=== PATIENT | male | born 1940 | race Caucasian/White ===

== ENCOUNTER 2016-12-27 14:49 | Observation (INO) ==
--- NOTE | 2016-12-27 14:56 | Emergency Department Note ---
Disposition Clinical Impression: Syncope Disposition: Admitted As Inpatient Condition: Critical General Adult HPI - General Chief complaint: ED Syncope Stated complaint: syncope Time Seen by Provider: 12/27/16 14:50 - Related Data Home Medications Medication Instructions Recorded Confirmed Allopurinol [Zyloprim 100 MG] 100 mg PO DAILY 12/27/16 12/27/16 Aspirin Enteric Coated [Aspirin EC] 81 mg PO DAILY 12/27/16 12/27/16 Cholecalciferol (Vitamin D3) 2,000 unit PO DAILY 12/27/16 12/27/16 [Vitamin D] Clopidogrel [Plavix] 75 mg PO DAILY 12/27/16 12/27/16 Levothyroxine [Synthroid] 25 mcg PO 0630 12/27/16 12/27/16 Losartan/Hydrochlorothiazide 1 tab PO DAILY 12/27/16 12/27/16 [Losartan-Hctz 100-25 mg Tab] Metoprolol [Lopressor] 25 mg PO BID 12/27/16 12/27/16 Multivitamin [One Daily Essential] 1 each PO DAILY 12/27/16 12/27/16 Simvastatin [Zocor] 20 mg PO HS 12/27/16 12/27/16 Zolpidem Tartrate [Zolpidem 2.5 - 5 mg PO HS PRN 12/27/16 12/27/16 Tartrate] Allergies Allergy/AdvReac Type Severity Reaction Status Date / Time propoxyphene [From Darvon] AdvReac Itching Verified 12/27/16 14:56 tramadol AdvReac Swelling Verified 12/27/16 14:56 of Lip/Tongue/Throat Past Medical History - Past Medical History Medical history: Reports: diabetes, hyperlipidemia, hypertension, thyroid disease, other Psychiatric history: Reports: no psych history - Social History Smoking Status: Never smoker Smokeless Tobacco Status: No Alcohol use: Reports: none Drug use: Reports: none Course Vital Signs Temperature 98 F 12/27/16 14:51 Pulse Rate 55 12/27/16 14:51 Respiratory Rate 16 12/27/16 14:51 Blood Pressure 122/75 12/27/16 14:51 O2 Sat by Pulse Oximetry 93 12/27/16 14:51 Temperature 97.9 F 12/27/16 19:42 Pulse Rate 54 12/27/16 19:42 Respiratory Rate 12 12/27/16 19:42 Blood Pressure 132/68 12/27/16 19:42 O2 Sat by Pulse Oximetry 95 12/27/16 19:42 Oxygen Delivery Oxygen Delivery Room Air Medical Decision Making - Lab Data Result diagrams: 12/27/16 15:16 12/27/16 15:16 Lab Results 12/27/16 12/27/16 12/27/16 Range/Units 15:16 15:16 15:16 WBC 7.1 (4.3-11.1) K/mcL RBC 4.92 (4.19-5.50) M/mcL Hgb 14.4 (12.9-16.9) g/dL Hct 43.2 (37.5-50.1) % MCV 87.8 (83.0-100.0) fL MCH 29.3 (28.0-33.3) pg MCHC 33.3 (31.6-35.5) g/dL RDW 13.1 (11.5-14.5) % Plt Count 189 (140-400) K/mcL MPV 10.3 (9.4-12.4) fL Immature Gran % 0.3 (0-4) % Seg Neutrophils % 78.8 % Lymphocytes % 14.0 % Monocytes % 5.8 % Eosinophils % 1.0 % Basophils % 0.1 % Neutrophils # 5.6 (1.6-8.9) K/mcL Lymphocytes # 1.0 (0.6-4.6) K/mcL Monocytes # 0.4 (0.0-1.3) K/mcL Eosinophils # 0.1 (0.0-0.6) K/mcL Basophils # 0.0 (0.0-0.2) K/mcL PT 11.9 (9.4-12.1) Seconds INR 1.1 APTT 27.9 (26.0-36.0) Seconds Sodium 138 (136-145) mEq/L Potassium 4.5 (3.5-4.5) mEq/L Chloride 101 (98-109) mEq/L Carbon Dioxide 27 (19-29) mEq/L BUN 33 H (8-26) mg/dL Creatinine 1.96 H (0.72-1.25) mg/dL Est GFR ( Amer) 41 L (> 60) Est GFR (Non-Af Amer) 34 L (> 60) BUN/Creatinine Ratio 17 (6-26) Glucose 226 H (70-99) mg/dL Calculated Osmolality 300 (280-300) Calcium 9.5 (8.6-10.8) mg/dL Troponin I (0-0.03) ng/mL 12/27/ Range/Units 15:16 WBC (4.3-11.1) K/mcL RBC (4.19-5.50) M/mcL Hgb (12.9-16.9) g/dL Hct (37.5-50.1) % MCV (83.0-100.0) fL MCH (28.0-33.3) pg MCHC (31.6-35.5) g/dL RDW (11.5-14.5) % Plt Count (140-400) K/mcL MPV (9.4-12.4) fL Immature Gran % (0-4) % Seg Neutrophils % % Lymphocytes % % Monocytes % % Eosinophils % % Basophils % % Neutrophils # (1.6-8.9) K/mcL Lymphocytes # (0.6-4.6) K/mcL Monocytes # (0.0-1.3) K/mcL Eosinophils # (0.0-0.6) K/mcL Basophils # (0.0-0.2) K/mcL PT (9.4-12.1) Seconds INR APTT (26.0-36.0) Seconds Sodium (136-145) mEq/L Potassium (3.5-4.5) mEq/L Chloride (98-109) mEq/L Carbon Dioxide (19-29) mEq/L BUN (8-26) mg/dL Creatinine (0.72-1.25) mg/dL Est GFR ( Amer) (> 60) Est GFR (Non-Af Amer) (> 60) BUN/Creatinine Ratio (6-26) Glucose (70-99) mg/dL Calculated Osmolality (280-300) Calcium (8.6-10.8) mg/dL Troponin I 0.04 H* (0-0.03) ng/mL Attestation Statement - Attestation Attestation: I examined this patient and my medical decision-making was reviewed with the Resident Physician. I agree with the documented findings, disposition and treatment plan as described except to the extent set forth below. [id number] time provided Patient arrives by EMS after a syncopal event. He appears in no acute distress at the time of exam. I evaluated this patient in conjunction with the resident physician Savage. EKG reviewed by me
--- NOTE | 2016-12-27 15:01 | Emergency Department Note ---
Disposition Clinical Impression: Syncope Disposition: Admitted As Inpatient Condition: Critical Time of Disposition: 18:00 Syncope HPI - General Chief Complaint: ED Syncope Stated Complaint: syncope Time Seen by Provider: 12/27/16 14:50 Source: patient, EMS Limitations: no limitations Nursing Notes Reviewed: Yes Vital Signs Reviewed: Yes - History of Present Illness HPI Narrative: Mr. Carpenter, a 76yo male, presents from scene via EMS for evaluation of syncope. Patient was seated and syncopized. He was caught by an [employer] member and lowered to the ground. He did not hit his head or neck. Patient had no prodromal symptoms. He does note that he has not felt well awakening this morning. He describes this as general fatigue with myalgia and a dry cough. No fevers, chills, nausea, vomiting, chest pains, palpitations, thoracic back pains, abdominal pains. 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 PMH: CAD status post ACS with double bypass in the late and triple bypass in early . Hypertension, hyperlipidemia, diabetes, hypothyroid. PSH: Open heart surgery twice, cholecystectomy Patient has not seen a checker stocker since 2010. - Related Data Home Medications Medication Instructions Recorded Confirmed Allopurinol [Zyloprim 100 MG] 100 mg PO DAILY 12/27/16 12/27/16 Aspirin Enteric Coated [Aspirin EC] 81 mg PO DAILY 12/27/16 12/27/16 Cholecalciferol (Vitamin D3) 2,000 unit PO DAILY 12/27/16 12/27/16 [Vitamin D] Clopidogrel [Plavix] 75 mg PO DAILY 12/27/16 12/27/16 Levothyroxine [Synthroid] 25 mcg PO 0630 12/27/16 12/27/16 Losartan/Hydrochlorothiazide 1 tab PO DAILY 12/27/16 12/27/16 [Losartan-Hctz 100-25 mg Tab] Metoprolol [Lopressor] 25 mg PO BID 12/27/16 12/27/16 Multivitamin [One Daily Essential] 1 each PO DAILY 12/27/16 12/27/16 Simvastatin [Zocor] 20 mg PO HS 12/27/16 12/27/16 Zolpidem Tartrate [Zolpidem 2.5 - 5 mg PO HS PRN 12/27/16 12/27/16 Tartrate] Allergies Allergy/AdvReac Type Severity Reaction Status Date / Time propoxyphene [From Darvon] AdvReac Itching Verified 12/27/16 14:56 tramadol AdvReac Swelling Verified 12/27/16 14:56 of Lip/Tongue/Throat All systems ED: reviewed and negative except as stated. Review of Systems: As Per HPI Past Medical History - Past Medical History Medical history: Reports: diabetes, hyperlipidemia, hypertension, thyroid disease, other Psychiatric history: Reports: no psych history - Social History Smoking Status: Never smoker Smokeless Tobacco Status: No Alcohol use: Reports: none Drug use: Reports: none Physical Exam Vital Signs Reviewed General: Patient is alert, oriented, and in no acute distress. HEENT: No facial asymmetry. Head is normocephalic and atraumatic. PERRLA, EOMI. oral mucosa moist. Trachea midline. Cardiovascular: Heart regular rate and rhythm without clicks, rubs, gallops, or murmurs. No JVD. PMI nondisplaced. Respiratory: Symmetric chest rise with good respiratory effort. Bilateral breath sounds are clear without wheezing, crackles, or rhonchi. Vertical midline sternal remote operative incision. Abdomen: Bowel sounds present normoactive x-4 quadrants. Abdomen is soft, nondistended, and nontender. No rebound or guarding. Left upper quadrant diagonal incision, remote, well-healed. Musculoskeletal: Spontaneously moving all extremities. Neuro: GCS 15. Skin: Warm, dry, intact. Psych: Patient's affect is appropriate for situation. - General Limitations: no limitations General appearance: alert, in no apparent distress Course Course Narrative: Patient presents with concerning story for syncope while at sitting. He denies any prodromal symptoms. He is in sinus bradycardia on EKG as well as on the monitor. He has no chest pains or palpitations. Clinical concern for cardiogenic syncope. Patient is agreeable to admission. We will also workup accordingly. Troponin is 0.0. Lab work is unremarkable. Patient's daughter is not bedside. I discussed with her and patient his EKG, the meaning of an EKG, his troponin being slightly elevated, the meaning of the troponin, and the need for continued evaluation. They are both in agreement for his admission to have no additional questions or concerns this time. Denies need for analgesia and is in no pain at this time. Vital Signs Temperature 98 F 12/27/16 14:51 Pulse Rate 55 12/27/16 14:51 Respiratory Rate 16 12/27/16 14:51 Blood Pressure 122/75 12/27/16 14:51 O2 Sat by Pulse Oximetry 93 12/27/16 14:51 Temperature 98 F 12/27/16 14:51 Pulse Rate 53 12/27/16 16:29 Respiratory Rate 16 12/27/16 17:32 Blood Pressure 132/65 12/27/16 17:32 O2 Sat by Pulse Oximetry 97 12/27/16 16:29 Oxygen Delivery Oxygen Delivery Room Air Syncope - Lab Data Result diagrams: 12/27/16 15:16 12/27/16 15:16 Lab Results 12/27/16 12/27/16 12/27/16 Range/Units 15:16 15:16 15:16 WBC 7.1 (4.3-11.1) K/mcL RBC 4.92 (4.19-5.50) M/mcL Hgb 14.4 (12.9-16.9) g/dL Hct 43.2 (37.5-50.1) % MCV 87.8 (83.0-100.0) fL MCH 29.3 (28.0-33.3) pg MCHC 33.3 (31.6-35.5) g/dL RDW 13.1 (11.5-14.5) % Plt Count 189 (140-400) K/mcL MPV 10.3 (9.4-12.4) fL Immature Gran % 0.3 (0-4) % Seg Neutrophils % 78.8 % Lymphocytes % 14.0 % Monocytes % 5.8 % Eosinophils % 1.0 % Basophils % 0.1 % Neutrophils # 5.6 (1.6-8.9) K/mcL Lymphocytes # 1.0 (0.6-4.6) K/mcL Monocytes # 0.4 (0.0-1.3) K/mcL Eosinophils # 0.1 (0.0-0.6) K/mcL Basophils # 0.0 (0.0-0.2) K/mcL PT 11.9 (9.4-12.1) Seconds INR 1.1 APTT 27.9 (26.0-36.0) Seconds Sodium 138 (136-145) mEq/L Potassium 4.5 (3.5-4.5) mEq/L Chloride 101 (98-109) mEq/L Carbon Dioxide 27 (19-29) mEq/L BUN 33 H (8-26) mg/dL Creatinine 1.96 H (0.72-1.25) mg/dL Est GFR ( Amer) 41 L (> 60) Est GFR (Non-Af Amer) 34 L (> 60) BUN/Creatinine Ratio 17 (6-26) Glucose 226 H (70-99) mg/dL Calculated Osmolality 300 (280-300) Calcium 9.5 (8.6-10.8) mg/dL Troponin I (0-0.03) ng/mL 12/27/16 Range/Units 15:16 WBC (4.3-11.1) K/mcL RBC (4.19-5.50) M/mcL Hgb (12.9-16.9) g/dL Hct (37.5-50.1) % MCV (83.0-100.0) fL MCH (28.0-33.3) pg MCHC (31.6-35.5) g/dL RDW (11.5-14.5) % Plt Count (140-400) K/mcL MPV (9.4-12.4) fL Immature Gran % (0-4) % Seg Neutrophils % % Lymphocytes % % Monocytes % % Eosinophils % % Basophils % % Neutrophils # (1.6-8.9) K/mcL Lymphocytes # (0.6-4.6) K/mcL Monocytes # (0.0-1.3) K/mcL Eosinophils # (0.0-0.6) K/mcL Basophils # (0.0-0.2) K/mcL PT (9.4-12.1) Seconds INR APTT (26.0-36.0) Seconds Sodium (136-145) mEq/L Potassium (3.5-4.5) mEq/L Chloride (98-109) mEq/L Carbon Dioxide (19-29) mEq/L BUN (8-26) mg/dL Creatinine (0.72-1.25) mg/dL Est GFR ( Amer) (> 60) Est GFR (Non-Af Amer) (> 60) BUN/Creatinine Ratio (6-26) Glucose (70-99) mg/dL Calculated Osmolality (280-300) Calcium (8.6-10.8) mg/dL Troponin I 0.04 H* (0-0.03) ng/mL - EKG Data EKG attestation: Yes I reviewed and interpreted this EKG. EKG results narrative: EKG dated 12/27/16 at 14:53 and interpreted as sinus bradycardia with a rate of 59. Normal intervals. 169, QRS 85, QT/QTc 444/444. Normal axis. An isolated T-wave inversion in V1 present on comparative EKG otherwise nonspecific ST-T changes.. Compared to previous EKG dated 12/09/2014 showed no acute ischemic changes.
[2016-12-27 15:25] LABS: Basophils % 0.1 %; Eosinophils # 0.1 K/mcL (0.0-0.6); Hematocrit 43.2 % (37.5-50.1); Hemoglobin 14.4 g/dL (12.9-16.9); Immature Granulocytes % 0.3 % (0-4); Mean Corpuscular HGB Conc 33.3 g/dL (31.6-35.5); Mean Corpuscular Hemoglobin 29.3 pg (28.0-33.3); Mean Corpuscular Volume 87.8 fL (83.0-100.0); Mean Platelet Volume 10.3 fL (9.4-12.4); Monocytes # 0.4 K/mcL (0.0-1.3); Monocytes % 5.8 %; Neutrophils # 5.6 K/mcL (1.6-8.9); Platelet Count 189 K/mcL (140-400); Red Blood Count 4.92 M/mcL (4.19-5.50); Red Cell Distribution Width 13.1 % (11.5-14.5); Segmented Neutrophils % 78.8 %
[2016-12-27 15:31] LABS: INR 1.1; Prothrombin Time 11.9 Seconds (9.4-12.1)
[2016-12-27 15:33] LABS: Activated Partial Thrombo Time 27.9 Seconds (26.0-36.0)
[2016-12-27 15:36] LABS: Calcium 9.5 mg/dL (8.6-10.8); Potassium 4.5 mEq/L (3.5-4.5)
[2016-12-27] MEDS ORDERED: Aspirin 81 MG TAB.CHEW PO ONE (15:45)
[2016-12-27] MEDS ORDERED: Naloxone 0.4 MG/ML INJ IVP PRN (18:27)
--- NOTE | 2016-12-27 18:35 | Internal Med History&Physical ---
<Leon Warren - Last Filed: 12/27/16 20:53> Date of Encounter: 12/27/16 Time of Encounter: 18:33 Assessment and Plan (1) Syncope Current visit: Yes Status: Acute Syncopal event this afternoon. Was found to be bradycardic in ED, remains bradycardic, no SOB, no CP. BP is stable. No prior h/o syncope, does not regularly follow with rn delivery. Taking BB, reports HR 60 this morning; took BB anyway Hold BB echocardiogram BL carotid doppler US continuous tele, Qualifiers: Syncope type: unspecified Qualified Code(s): R55 - Syncope and collapse (2) Bradycardia Current visit: Yes Status: Acute He reports that he is frequently bradycardic. He is on a beta veronica at home, heart rate is morning 60 prior to taking metoprolol. Heart rate in the 40s upon arrival to the emergency department this afternoon. See plan above hold BB for now (3) Hypothyroid Current visit: Yes Status: Acute History of hypothyroidism. Reports he has not had thyroid checked in quite some time. We will check TSH and free T4 in the morning. Consider adjusting medications based on results Qualifiers: Hypothyroidism type: unspecified Qualified Code(s): E03.9 - Hypothyroidism , unspecified (4) CKD (chronic kidney disease) Current visit: Yes Status: Acute follow with Dr. Friedman, CR is 1.96 today, prior CR is 1.71. Check chemistry in the morning Qualifiers: Chronic kidney disease stage: unspecified stage Qualified Code(s): N18.9 - Chronic kidney disease, unspecified (5) HLD (hyperlipidemia) Current visit: Yes Status: Acute Qualifiers: Qualified Code(s): E78.5 - Hyperlipidemia, unspecified (6) HTN (hypertension) Current visit: Yes Status: Acute H/O HTN, BP currently stable. Continue hyzaar, hold BB for now as the patient had a syncopal event today Qualifiers: Hypertension type: essential hypertension Qualified Code(s): I10 - Essential (primary) hypertension Internal Medicine - H&P: HPI Chief complaint: syncope Admitted From: Home Plans for Post Hospital Care: Home History of present illness: Mr. Carpenter is a 76 year old male with a PMH of CAD, HTN, HLD,, DM, hypothyroidism, and 3 vessel CABG. He presents today for a syncopal event. 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 He was seated and suddenly became syncopal. He reports that he did not hit his head or suffer neck trauma as he was caught by a bystander. He reports that he has not felt well for the last 3 days, reporting generalized fatigue. He denies any fevers, chills, n/v, CP palpitations, vision changes, or SOB. He does have some concerns for a dull frontal h/a over the last three days. No additional complaints. Troponin is slightly elevated at 0.04. Past Med Surg Social Fam HX - Past Medical History Medical history: diabetes, hyperlipidemia, hypertension, thyroid disease, other Psychiatric history: no psych history - Social History Smoking Status: Never smoker Smokeless Tobacco Status: No Alcohol use: none Drug use: none Internal Medicine - H&P: Meds Allopurinol [Zyloprim 100 MG] 100 mg PO DAILY 12/27/16 [History] Aspirin Enteric Coated [Aspirin EC] 81 mg PO DAILY 12/27/16 [History] Cholecalciferol (Vitamin D3) [Vitamin D] 2,000 unit PO DAILY 12/27/16 [History] Clopidogrel [Plavix] 75 mg PO DAILY 12/27/16 [History] Levothyroxine [Synthroid] 25 mcg PO 0630 12/27/16 [History] Losartan/Hydrochlorothiazide [Losartan-Hctz 100-25 mg Tab] 1 tab PO DAILY [History] Metoprolol [Lopressor] 25 mg PO BID 12/27/16 [History] Multivitamin [One Daily Essential] 1 each PO DAILY 12/27/16 [History] Simvastatin [Zocor] 20 mg PO HS 12/27/16 [History] Zolpidem Tartrate [Zolpidem Tartrate] 2.5 - 5 mg PO HS PRN 12/27/16 [History] 3 Allergy/AdvReac Type Severity Reaction Status Date / Time propoxyphene [From Darvon] AdvReac Itching Verified 12/27/16 14:56 tramadol AdvReac Swelling Verified 12/27/16 14:56 of Lip/Tongue/Throat All Systems PM: A 10-system review of systems was performed and is negative for pertinent findings except as documented above in the HPI. - Constitutional Constitutional: no chills, no fever(s), no night sweats - EENT Eyes: no change in vision, no discharge, no pain, no photophobia Ears: no ear discharge, no ear pain, no tinnitus Nose, mouth and throat: no dysphagia, no nasal discharge, no neck pain, no sore throat - Cardiovascular Cardiovascular ROS IM: lightheadedness, syncope, no chest pain, no diaphoresis, no dyspnea, no edema, no irregular heart rhythm, no palpitations - Respiratory Respiratory: no cough, no dyspnea, no wheezing, no excessive phlegm production - Gastrointestinal Gastrointestinal: no abdominal pain, no diarrhea, no hematemesis, no hematochezia, no melena, no nausea, no vomiting - Musculoskeletal Musculoskeletal ROS IM: no numbness, no tingling - Integumentary Integumentary IM: no rash, no unusual bruising - Neurological Neurological ROS: as per HPI, dizziness, headache(s), weakness, no abnormal gait , no abnormal hearing, no abnormal movements, no abnormal speech, no behavioral changes, no confusion, no convulsions, no disequilibrium, no focal weakness, no frequent falls, no lack of coordination, no loss of vision, no memory loss, no numbness, no tingling, no tremor(s) - Hematologic/Lymphatic Hematologic/Lymphatic: no easy bruising - Constitutional Vitals: Temp Pulse Resp BP Pulse Ox 98 F 53 16 132/65 97 12/27/16 14:51 12/27/16 16:29 12/27/16 17:32 12/27/16 17:32 12/27/16 16:29 General appearance: Present: cooperative, A&O X 3, no acute distress, answers questions appropriately - Head Head exam: Present: atraumatic, normocephalic - Eye Eye exam: Present: EOMI, PERRL, conjuntiva pink, sclera anicteric Pupils: Present: PERRL - Neck Neck exam general surgery: Present: supple, trachea midline. Absent: lymphadenopathy - Respiratory Respiratory exam: Present: CTAB. Absent: accessory muscle use, rales, rhonchi, wheezes - Cardiovascular Cardiovascular exam: Present: bradycardia, RRR, +S1, +S2. Absent: diastolic murmur, distant heart sounds, gallop, irregular rhythm, JVD, rubs, systolic murmur - GI/Abdominal GI/Abdominal exam: Present: normal bowel sounds, soft, no peritoneal signs. Absent: distended, tenderness - Extremities Exam Extremities exam: Present: warm, radial pulses palpable and symmetrical. Absent : calf tenderness, cyanotic, pedal edema - Neurological Exam Neurological exam: Present: alert, CN II-XII intact, oriented X3, no focal deficits, strengths equal and symetr throughout. Absent: pronater drift, facial droop, speech deficit - Expanded Neurological Exam Patient oriented to: Present: person, place, time Coma Scale Eye Opening: Spontaneous Coma Scale Motor Response: Obeys Commands Coma Scale Verbal Response: Oriented Coma Scale Total: 15 - Skin Skin exam: Present: dry, intact Internal Med - H&P Results - Labs CBC & Chem 7: 12/27/16 15:16 12/27/16 15:16 - EKG Data -: EKG Interpreted by Myself EKG shows normal: sinus rhythm Rate: bradycardia - EKG Data Prior EKG available for review: no - Diagnostic Studies Chest x-ray Status: image reviewed by me Additional comments: no acute pulmonary process <Tyrell Cheng - Last Filed: 12/27/16 22:27> Date of Encounter: 12/27/16 Internal Medicine - H&P: HPI History of present illness: Mr. Carpenter is a 76 year old male All Systems PM: A 10-system review of systems was performed and is negative for pertinent findings except as documented above in the HPI. - Constitutional Vitals: Temp Pulse Resp BP Pulse Ox 97.9 F 54 12 132/68 95 12/27/16 19:42 12/27/16 19:42 12/27/16 19:42 12/27/16 19:42 12/27/16 19:42 Internal Med - H&P Results - Labs CBC & Chem 7: 12/27/16 15:16 12/27/16 15:16 Labs: Cardiac Enzymes 12/27/16 Range/Units 21:06 Troponin I 0.03 (0-0.03) ng/mL - Attending Attestation I have personally performed a face to face evaluation on this patient. I have reviewed and agree with the care plan. History and Exam by me shows: 76 y/o male with syncopal episode today. No prodrome. No injury. Feels at baseline at this time. Exam Alert. Comfortable Heart reg Lungs clear Agree with assessment and plan as above.
[2016-12-27] MEDS: 0.9 % Sodium Chloride 1,000 ML IVC SCH (21:40)
[2016-12-28 04:04] LABS: Albumin 3.3 g/dL (3.5-5.0); Albumin/Globulin Ratio 0.9 (1.1-2.2); Bilirubin,Total 0.3 mg/dL (0.2-1.2); Calcium 8.7 mg/dL (8.6-10.8); Globulin 3.7 g/dL (2.4-3.5); Potassium 3.8 mEq/L (3.5-4.5)
[2016-12-28 04:05] LABS: Basophils % 0.3 %; Eosinophils # 0.2 K/mcL (0.0-0.6); Eosinophils % 2.2 %; Hematocrit 39.6 % (37.5-50.1); Hemoglobin 13.4 g/dL (12.9-16.9); Immature Granulocytes % 0.3 % (0-4); Lymphocytes % 27.8 %; Mean Corpuscular HGB Conc 33.8 g/dL (31.6-35.5); Mean Corpuscular Hemoglobin 29.2 pg (28.0-33.3); Mean Corpuscular Volume 86.3 fL (83.0-100.0); Mean Platelet Volume 10.4 fL (9.4-12.4); Monocytes # 0.7 K/mcL (0.0-1.3); Monocytes % 10.1 %; Neutrophils # 4.3 K/mcL (1.6-8.9); Platelet Count 165 K/mcL (140-400); Red Blood Count 4.59 M/mcL (4.19-5.50); Red Cell Distribution Width 13.2 % (11.5-14.5); Segmented Neutrophils % 59.3 %
[2016-12-28 04:25] LABS: Thyroid Stimulating Hormone 3.534 mcIU/mL (0.350-4.840)
--- NOTE | 2016-12-28 07:58 | Discharge Summary ---
Date of Encounter: 12/28/16 Time of Encounter: 07:55 - Discharge Diagnosis (1) Syncope Priority: Primary Status: Acute Comments: Secondary to symptomatic bradycardia due to beta blockers/metoprolol Qualifiers: Syncope type: unspecified Qualified Code(s): R55 - Syncope and collapse (2) Symptomatic bradycardia Priority: Primary Status: Acute (3) CAD (coronary artery disease) Priority: Secondary Status: Acute Qualifiers: Coronary Disease-Associated Artery/Lesion type: bypass graft [place] vs. transplanted heart: [place] heart Associated angina: without angina Qualified Code(s): I25.810 - Atherosclerosis of coronary artery bypass graft(s) without angina pectoris (4) CKD (chronic kidney disease) Priority: Secondary Status: Acute Qualifiers: Chronic kidney disease stage: stage 3 (moderate) Qualified Code(s): N18.3 - Chronic kidney disease, stage 3 (moderate) (5) Diabetes Priority: Secondary Status: Acute Qualifiers: Diabetes mellitus type: type 2 Diabetes mellitus complication status: without complication Diabetes mellitus detention insulin use: without terminal worker use Qualified Code(s): E11.9 - Type 2 diabetes mellitus without complications (6) HLD (hyperlipidemia) Priority: Secondary Status: Acute Qualifiers: Hyperlipidemia type: unspecified Qualified Code(s): E78.5 - Hyperlipidemia , unspecified (7) HTN (hypertension) Priority: Secondary Status: Acute Qualifiers: Hypertension type: essential hypertension Qualified Code(s): I10 - Essential (primary) hypertension - Discharge Medications Prescriptions: Metoprolol [Lopressor] 12.5 mg PO BID #60 tablet Home Medications: Allopurinol [Zyloprim 100 MG] 100 mg PO DAILY 12/27/16 [History] Aspirin Enteric Coated [Aspirin EC] 81 mg PO DAILY 12/27/16 [History] Cholecalciferol (Vitamin D3) [Vitamin D3] 2,000 unit PO DAILY 12/27/16 [History] Clopidogrel [Plavix] 75 mg PO DAILY 12/27/16 [History] Levothyroxine [Synthroid] 25 mcg PO 0630 12/27/16 [History] Losartan/Hydrochlorothiazide [Losartan-Hctz 100-25 mg Tab] 1 tab PO DAILY [History] Multivitamin [One Daily Essential] 1 each PO DAILY 12/27/16 [History] Simvastatin [Zocor] 20 mg PO HS 12/27/16 [History] Zolpidem Tartrate 2.5 - 5 mg PO HS PRN 12/27/16 [History] Metoprolol [Lopressor] 12.5 mg PO BID #60 tablet 12/28/16 [Rx] Allergies/Adverse Reactions: 3 Allergy/AdvReac Type Severity Reaction Status Date / Time propoxyphene [From [place]] AdvReac Itching Verified 12/27/16 14:56 tramadol AdvReac Swelling Verified 12/27/16 14:56 of Lip/Tongue/Throat Procedures/tests Complete & Pending: Procedures Performed prior 72 hours Category Date Time Status EV carotid duplex imaging BI Routine Y 12/27/16 18:25 Ordered EV echocardiogram Routine Y 12/27/16 18:25 Ordered Date of admission: 12/27/16 17:10 Primary care physician: Horacio Neil MD - Patient Status Disposition: Home, Self-Care Condition: Good - Discharge Instructions Instructions: Metoprolol (By mouth), Bradycardia (DC), Bradycardia (GEN) Follow Up With: Horacio Neil MD [Primary Care Provider] - 12/30/16 2:00 pm Additional Instructions: Follow-up with primary care physician within the next 7 days. Reduce the dose of metoprolol down to 12.5 g twice a day, hold it if dizzy - Diet and Activity Activity: increase activity as tolerated Diet: diabetic diet Hospital course: Mr. Carpenter is a 76 year old male with a PMH of CAD post CABG, HTN, HLD, DM not insulin-dependent, hypothyroidism, history of cholangitis, pneumonia, remote tobacco use, chronic kidney disease stage III, left carotid stenosis status post left carotid endarterectomy and 3 vessel CABG, cholecystectomy, transurethral resection of prostate. He presented for a syncopal event. 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 He was seated and suddenly became syncopal. He reported that he did not hit his head or suffered neck trauma as he was caught by a bystander. Has not felt well for the last 3 days, reporting generalized fatigue that has been progressively getting worse for the past year. EKG shows bradycardia in the 50s but they are reported bradycardia as low as 40s. He takes metoprolol 25 mg twice a day. Troponin is slightly elevated at 0.04. Metoprolol has been held, patient was recommended to reduce the dose down to 12.5 mg twice a day or to stop taking it if his symptoms continue. Echocardiogram showed EF 60% , mild diastolic dysfunction. Carotid ultrasound showed: Nonstenotic plaque is the only finding on the right side. Patient appears to have a 40-59% stenosis on the left side bifurcation.and carted ultrasound were ordered. - Time Spent with Patient Total time spent providing and/or coordinating discharge services: Greater than 30 minutes (40 min) - Constitutional Vitals: Temp Pulse Resp BP Pulse Ox 97.7 F 56 16 138/79 95 12/28/16 06:31 12/28/16 06:31 12/28/16 06:31 12/28/16 06:31 12/28/16 06:31 General appearance: Present: cooperative, A&O X 3, no acute distress, answers questions appropriately - Head Head exam: Present: atraumatic, normocephalic - Eye Eye exam: Present: PERRL, conjuntiva pink, sclera anicteric Pupils: Present: PERRL - Neck Neck exam general surgery: Present: supple, trachea midline. Absent: lymphadenopathy - Respiratory Respiratory exam: Present: CTAB. Absent: accessory muscle use, rales, rhonchi, wheezes - Cardiovascular Cardiovascular exam: Present: RRR, +S1, +S2. Absent: diastolic murmur, gallop, rubs, systolic murmur - GI/Abdominal GI/Abdominal exam: Present: normal bowel sounds, soft, no peritoneal signs. Absent: distended, tenderness - Extremities Exam Extremities exam: Present: warm, radial pulses palpable and symmetrical. Absent : calf tenderness, cyanotic, pedal edema - Neurological Exam Neurological exam: Present: CN II-XII intact, oriented X3, no focal deficits. Absent: pronater drift, facial droop, speech deficit - Skin Skin exam: Present: dry, intact
[2016-12-28] MEDS: 0.9 % Sodium Chloride 1,000 ML IVC SCH (08:08)
[2016-12-28] MEDS ORDERED: Losartan/HCTZ 50-12.5 TABLET PO SCH (09:00)
[2016-12-28] MEDS ORDERED: Aspirin Enteric Coated 81 MG Tablet PO SCH (09:00)
[2016-12-28 11:57] VITALS: BP 118/65
--- NOTE | 2016-12-28 13:07 | Electrocardiograph Report ---
[place] [id number] Test Date: 2016-12-27 Pat Name: Tanvir Carpenter Department: 103 Room: 3B21 Gender: M Singe Winder: : 1940 Requested By: Arian Wan Order Number: [id number] Reading MD: Piyush Nur MD Measurements Intervals [place] Rate: 59 P: 64 ME: 169 QRS: 16 QRSD: 85 T: 23 QT: 444 QTc: 444 Interpretive Statements SINUS BRADYCARDIA Electronically Signed On 12-28-2016 13:05:21 EST by Piyush Nur MD
== END 2016-12-28 18:30 | disposition home or self-care (01) ==
LOC: 3BNU 14:49 → EMEROO 14:49 → SUATTDRO 17:10 → 3BNU 19:20
PROVIDERS: ADMIT Nurse Practitioner; ATTEND Internal Medicine